=== PATIENT | male | born 1965 | race Caucasian/White ===

== ENCOUNTER 2017-09-23 10:22 | Outpatient (CLI) | payer OTHER ==
[~2017-09-23 10:22] MED LIST: CENTRUM TABLET1 TAB; CONEX TABLET1 EACH PO; TESSALON PERLE100 MG PO
== END 2017-09-23 10:29 | disposition home or self-care (01) ==
LOC: LAB 10:22
DX: N40.0 Benign prostatic hyperplasia without lower urinary tract symptoms (principal); E78.2 Mixed hyperlipidemia; E03.8 Other specified hypothyroidism; E11.9 Type 2 diabetes mellitus without complications; I10 Essential (primary) hypertension

== ENCOUNTER 2017-11-02 21:09 | Emergency (ER) | payer OTHER ==
[~2017-11-02] VITALS: Ht 177.8 cm; Wt 93.0 kg
[2017-11-02] MEDS ORDERED: SYNTHROID50 MCG (21:24)
[2017-11-03] MEDS ORDERED: PEPCID40 MG PO (03:53)
[2017-11-03] MEDS ORDERED: ZOFRAN8 MG PO (03:53)
== END 2017-11-03 04:09 | disposition home or self-care (01) ==
LOC: ER 21:09
DX: R11.2 Nausea with vomiting, unspecified (principal); E86.0 Dehydration

== ENCOUNTER 2018-08-11 08:51 | Outpatient (CLI) | payer OTHER ==
[~2018-08-11 08:51] MED LIST changes: +PEPCID40 MG PO; +SYNTHROID50 MCG; +ZOFRAN8 MG PO
== END 2018-08-11 09:19 | disposition home or self-care (01) ==
LOC: LAB 08:51
DX: N40.0 Benign prostatic hyperplasia without lower urinary tract symptoms (principal); E78.2 Mixed hyperlipidemia; E55.9 Vitamin D deficiency, unspecified; E11.9 Type 2 diabetes mellitus without complications; I10 Essential (primary) hypertension

== ENCOUNTER 2019-08-27 10:18 | Outpatient (CLI) | payer OTHER | END 2019-08-27 10:35 | disposition home or self-care (01) | LOC: SONOGRAMA 10:18 | PROVIDERS: ATTEND Internal Medicine Endocrinology, Diabetes & Metabolism | DX: E03.8 Other specified hypothyroidism (principal) ==

== ENCOUNTER 2021-02-09 14:27 | Outpatient (CLI) | payer OTHER | END 2021-02-09 14:54 | disposition home or self-care (01) | LOC: RAD 14:27 | PROVIDERS: ATTEND Podiatrist Foot Surgery | DX: M79.672 Pain in left foot (principal) ==

== ENCOUNTER 2021-03-01 16:19 | Outpatient (CLI) | payer OTHER | END 2021-03-01 16:41 | disposition home or self-care (01) | LOC: RAD 16:19 | PROVIDERS: ATTEND Specialist | DX: M51.36 Other intervertebral disc degeneration, lumbar region (principal); M43.27 Fusion of spine, lumbosacral region ==

== ENCOUNTER → 2021-04-10 07:46 | Outpatient (CLI) | payer OTHER | END | disposition home or self-care (01) | LOC: NUCLEAR 07:46 | PROVIDERS: ATTEND Podiatrist | DX: M86.172 Other acute osteomyelitis, left ankle and foot (principal) | CPT/HCPCS: 78315; A9503 ==

== ENCOUNTER 2021-07-25 10:59 | Outpatient (CLI) | payer OTHER | END 2021-07-25 11:12 | disposition home or self-care (01) | LOC: RAD 10:59 | PROVIDERS: ATTEND Podiatrist | DX: M19.079 Primary osteoarthritis, unspecified ankle and foot (principal) ==

== ENCOUNTER 2022-04-13 11:01 | Emergency (ER) | payer OTHER ==
[~2022-04-13] VITALS: Ht 177.8 cm; Wt 94.3 kg
== END 2022-04-13 15:24 | disposition home or self-care (01) ==
LOC: ER 11:01
DX: B34.8 Other viral infections of unspecified site (principal); Z20.822 Contact with and (suspected) exposure to COVID-19

== ENCOUNTER 2022-06-21 12:33 | Outpatient (CLI) | payer OTHER | END 2022-06-21 12:44 | disposition home or self-care (01) | LOC: RAD 12:33 | PROVIDERS: ATTEND Specialist | DX: U07.1 COVID-19 (principal); J06.9 Acute upper respiratory infection, unspecified; R05.1 Acute cough ==

== ENCOUNTER 2022-07-18 | Outpatient (CLI) | payer OTHER | END 2022-07-18 00:15 | disposition home or self-care (01) | LOC: PPH VACUNA | PROVIDERS: ATTEND Emergency Medicine Pediatric Emergency Medicine | DX: Z23 Encounter for immunization (principal) ==

== ENCOUNTER 2023-06-24 12:55 | Emergency (ER) | payer OTHER ==
[~2023-06-24] VITALS: Ht 177.8 cm; Wt 90.7 kg
[2023-06-24] MEDS ORDERED: KETOROLAC TROMETHAMINE 60 MG VIAL IM STA (13:39)
== END 2023-06-24 15:05 | disposition home or self-care (01) ==
LOC: ER 12:55
DX: M25.561 Pain in right knee (principal)

== ENCOUNTER 2023-07-08 12:59 | Outpatient (CLI) | payer OTHER | END 2023-07-08 13:01 | disposition home or self-care (01) | LOC: RAD 12:59 | DX: R05.2 Subacute cough (principal) ==

== ENCOUNTER 2024-02-06 12:09 | Emergency (ER) | payer OTHER ==
[~2024-02-06] VITALS: Ht 177.8 cm; Wt 97.5 kg
== END 2024-02-06 15:08 | disposition home or self-care (01) ==
LOC: ER 12:11
DX: R05.8 Other specified cough (principal); Z20.822 Contact with and (suspected) exposure to COVID-19